=== PATIENT | male | born 1985 ===

== ENCOUNTER 2022-10-30 15:30 | Emergency (ER) | payer OTHER, SELFPAY ==
[2022-10-30 15:59] VITALS: BP 140/81; PULSE 99; RESP 16; TEMP 36.9; O2SAT 99
--- NOTE | 2022-10-30 16:48 | ED.URI ---
HPI - URI/Sore Throat General Chief Complaint: Upper Respiratory Infection Stated Complaint: positive at home COVID test yesterday Time Seen by Provider: 10/30/22 16:37 Source: patient and RN notes reviewed Mode of arrival: ambulatory Limitations: no limitations History of Present Illness HPI Narrative: Patient presents today complaining of 5 day history of cough, sore throat, fatigue, body aches, sneezing, chills and sweats. Denies shortness of breath, fever. He did a home COVID-19 test yesterday that was positive. He came here for a, ?official test?. He took Advil on the 1st day for his symptoms, but has not taken any other [id number] treatment prior to arrival. He has been vaccinated against COVID-19 Related Data Home Medications Medication Instructions Recorded Confirmed No Home Medications 10/30/22 10/30/22 Allergies Allergy/AdvReac Type Severity Reaction Status Date / Time No Known Allergies Allergy Verified 10/30/22 15:52 Review of Systems Review of Systems: CONSTITUTIONAL: Denies fever. + body aches, chills, sweats, fatigue EYES: Denies visual changes, redness, or discharge. ENT: Denies rhinorrhea, congestion, or otalgia.+ sore throat CARDIOVASCULAR: Denies chest pain, palpitations, or edema. RESPIRATORY: Denies dyspnea.+ cough GASTROINTESTINAL: Denies abdominal pain, nausea, vomiting, or diarrhea. GENITOURINARY: Denies dysuria or hematuria. SKIN: Denies rash, itching, or wounds. MUSCULOSKELETAL: Denies back pain, joint pain, or myalgia. NEUROLOGIC: Denies headache, numbness, tingling, or weakness. PSYCH: Denies depression or anxiety. PMFSH Comments At time of signature, I have reviewed and agree with nursing past medical, surgical, social and family history unless otherwise noted. Please see nursing chart for further information. There is no relevant family history pertinent to the presenting complaint Exam Narrative: GENERAL: Well-appearing, well-nourished, and in no acute distress. HEAD: Normocephalic, atraumatic. EYES: EOMI. No redness or drainage. Conjunctivae normal. ENT: Mucous membranes pink and moist. Nares clear. No rhinorrhea. TMs normal bilaterally. Throat normal. Uvula midline. NECK: Normal AROM. Supple. No lymphadenopathy. CHEST: No respiratory distress. Clear to auscultation. HEART: Regular rate and rhythm. No murmur appreciated. Normal peripheral pulses. EXTREMITIES: Normal range of motion. No edema. SKIN: Warm, dry, no rash. Capillary refill normal. Normal skin turgor. NEURO: No focal deficits. Alert and oriented x3. Gait steady. PSYCH: Normal affect. No signs of depression or anxiety. Course Course Level of Care: Express Care Visit Vital Signs Vital signs: Vital Signs Temperature 98.5 F 10/30/22 15:59 Pulse Rate 99 10/30/22 15:59 Respiratory Rate 16 10/30/22 15:59 Blood Pressure 140/81 10/30/22 15:59 Pulse Oximetry 99 10/30/22 15:59 Oxygen Delivery Room Air 10/30/22 15:59 Temperature 98.5 F 10/30/22 15:59 Pulse Rate 99 10/30/22 15:59 Respiratory Rate 16 10/30/22 15:59 Blood Pressure 140/81 10/30/22 15:59 Pulse Oximetry 99 10/30/22 15:59 Oxygen Delivery Room Air 10/30/22 15:59 Reviewed. Pt has been instructed to follow up with his PCP regarding his elevated blood pressure today. MDM - URI/Sore Throat MDM Narrative Medical decision making narrative: COVID-19 here is negative, however, discussed with patient that since his home test was positive, he should assume that he is positive. Discussed that today's should be his last day of quarantine, but he needs to complete 5 days of mask wearing per CDC guidelines. He is requesting a note to this effect for his job. Discussed pros and cons of Paxlovid and patient has declined. Anticipatory guidance given. Differential Diagnosis Differential diagnosis: Likely upper respiratory infection, viral infection, bronchitis and other (COVID-19) Lab Data Attest
== END 2022-10-30 17:23 | disposition home or self-care (01) ==
PROVIDERS: Emergency Provider Nurse Practitioner; PCP Emergency Medicine
DX: U07.1 COVID-19 (principal)
CPT/HCPCS: 87426; 99213; C9803; G0463